=== PATIENT | female | born 1945 | race Hispanic/Latino ===

== ENCOUNTER 2017-02-03 09:00 | Day surgery (SDC) | payer OTHER ==
[~2017-02-03] VITALS: Ht 149.9 cm; Wt 71.2 kg
[~2017-02-03 09:00] MED LIST: ASPI-555 PO; CETI10TA57 PO; HYDR25TA PO; METO-409 PO; SODIUM CHLORIDE 0.9% 1000ML 1,000 ML IV ONE
[2017-02-03 11:18] VITALS: BP 142/69
[2017-02-03] MEDS ORDERED: MEPERIDINE-PF 50 MG/ML SYG ONE (12:09)
[2017-02-03] MEDS ORDERED: MIDAZOLAM HCL 1 MG/ML 2ML VIAL ONE (12:09)
== END 2017-02-03 13:13 | disposition home or self-care (01) ==
LOC: DAH 09:00 → ENDO 09:00
PROVIDERS: ATTEND Internal Medicine Gastroenterology
DX: Z09 Encounter for follow-up examination after completed treatment for conditions other than malignant neoplasm (principal); K63.5 Polyp of colon; K57.30 Diverticulosis of large intestine without perforation or abscess without bleeding; Z87.19 Personal history of other diseases of the digestive system; K21.9 Gastro-esophageal reflux disease without esophagitis; I10 Essential (primary) hypertension; Z88.8 Allergy status to other drugs, medicaments and biological substances; Z79.82 Long term (current) use of aspirin
CPT/HCPCS: 45380; 88305; 99156; A4606; J2175; J2250; J7030

== ENCOUNTER 2018-04-23 23:31 | Observation (INO) | payer OTHER ==
[~2018-04-23] VITALS: Ht 154.9 cm; Wt 72.9 kg
[~2018-04-23 23:31] MED LIST changes: -SODIUM CHLORIDE 0.9% 1000ML 1,000 ML IV ONE
[2018-04-24] MEDS ORDERED: PROMETHAZINE HCL 25 MG/ML 1ML AMPULE IM ONE (00:13)
[2018-04-24 00:14] LABS: RAPID GROUP A STREP NEGATIVE (NEGATIVE)
[2018-04-24 00:45] LABS: BASOPHILS % (AUTO) 0.5 % (0.0-5.0); EOSINOPHILS % (AUTO) 0.3 % (0.0-8.0); HEMATOCRIT 38.6 % (36-48); LYMPHOCYTES % (AUTO) 13.1 % (21.0-51.0); MEAN CORPUSCULAR HEMOGLOBIN 29.8 pg (27.0-33.0); MEAN CORPUSCULAR HGB CONC 34.7 g/dL (32.0-36.0); MEAN CORPUSCULAR VOLUME 85.8 fL (79-99); MONOCYTES % (AUTO) 5.2 % (3.0-13.0); NEUTROPHILS % (AUTO) 80.9 % (40.0-77.0); NUCLEATED RED BLOOD CELLS 0.1 % (0.0-0.19); PLATELET COUNT (AUTO) 268 K/uL (130-400); RED CELL DISTRIBUTION WIDTH 13.4 % (11.0-15.5); WHITE BLOOD COUNT (AUTO) 10.6 K/uL (4.8-10.8)
[2018-04-24 00:57] LABS: APPEARANCE,URINE CLEAR (CLEAR); BILIRUBIN,URINE NEGATIVE (NEGATIVE); COLOR,URINE YELLOW (YELLOW); GLUCOSE, URINE (UA) NEGATIVE (NEGATIVE); KETONES,URINE 15 mg/dL (NEGATIVE); LEUKOCYTE ESTERASE ,URINE NEGATIVE (NEGATIVE); NITRATE,URINE NEGATIVE (NEGATIVE); OCCULT BLOOD,URINE NEGATIVE (NEGATIVE); PROTEIN,URINE NEGATIVE (NEGATIVE); UROBILINOGEN,URINE 0.2 mg/dL (0.2-1.0)
[2018-04-24 00:59] LABS: INR 1.02 (0.85-1.15); PROTHROMBIN TIME 10.7 SEC (9.6-11.6)
[2018-04-24 01:00] LABS: ALBUMIN 3.6 g/dL (3.5-5.0); BILIRUBIN,TOTAL 0.4 mg/dL (0.2-1.0); CREATININE 1.1 mg/dL (0.5-1.5); TOTAL PROTEIN, SERUM 7.9 g/dL (6.0-8.3)
[2018-04-24 01:06] LABS: POTASSIUM 2.8 mmol/L (3.5-5.1)
[2018-04-24] MEDS ORDERED: SODIUM CHLORIDE 0.9% 1000ML 1,000 ML IV ONE (01:06)
[2018-04-24] MEDS ORDERED: FAMOTIDINE/PF 20 MG/2 ML VIAL IV ONE (01:07)
[2018-04-24 01:09] LABS: BACTERIA,URINE Rare /HPF (None Seen); RBC,URINE 0-1 /HPF (0-1); YEAST,URINE BUDDING Few /HPF (None Seen)
[2018-04-24] MEDS ORDERED: LIDOCAINE HCL-MPF 1% 2ML VIAL ONE (01:52)
[2018-04-24] MEDS ORDERED: POTASSIUM CHLORIDE 20MEQ/100ML 100 ML IV ONE (01:52)
[2018-04-24] MEDS ORDERED: POTASSIUM CHLORIDE 10% ELIXIR 20 MEQ/15 ML UDCUP ONE ×2 (01:52→01:57)
[2018-04-24] MEDS ORDERED: ONDANSETRON HCL 4 MG/2 ML VIAL IV PRN (02:15)
[2018-04-24] MEDS ORDERED: ACETAMINOPHEN 325 MG TAB PO PRN (02:15)
[2018-04-24] MEDS ORDERED: CHOL100040 PO (04:29)
[2018-04-24] MEDS ORDERED: BACL10TA PO (04:29)
[2018-04-24 04:30] VITALS: BP 153/75
--- NOTE | 2018-04-24 05:03 | NUR ---
ADMISSION. PT ADMITTED INTO ROOM 404 FROM ER. PT TRANSFERRED VIA STRETCHER. PT AWAKE, ALERT AND RESPONSIVE. NO C/O PAIN OR DISCOMFORT AT THIS TIME. PT ORIENTED TO ROOM, CALL RUBI WITHIN REACH, BED IN LOWEST POSITION. Addendum: 04/24/18 at 0505 by SCARLETT ESQUIVEL RN Amended: Links added.
[2018-04-24] MEDS: LACTATED RINGERS 1000ML 1,000 ML IV SCH ×3 (06:16→22:23)
[2018-04-24] MEDS ORDERED: POTASSIUM CHLORIDE 20MEQ/100ML 100 ML IV PRN (06:30)
[2018-04-24] MEDS ORDERED: LIDOCAINE HCL-MPF 1% 2ML VIAL IVP PRN (06:30)
[2018-04-24] MEDS ORDERED: POTASSIUM CHLORIDE 10% ELIXIR 20 MEQ/15 ML UDCUP PO PRN (06:30)
[2018-04-24] MEDS: POTASSIUM CHLORIDE 20 MEQ ERTAB PO PRN ×3 (07:09→12:52)
[2018-04-24 08:37] VITALS: BP 137/71
[2018-04-24] MEDS ORDERED: ***HM***Metoprolol Succinate 100 MG PO SCH (09:00)
[2018-04-24] MEDS: HYDROCHLOROTHIAZIDE 25 MG TABLET PO SCH (10:10)
[2018-04-24] MEDS: CETIRIZINE HCL 5 MG TABLET PO SCH (10:10)
[2018-04-24] MEDS: FAMOTIDINE/PF 20 MG/2 ML VIAL IV SCH ×2 (10:10→20:30)
[2018-04-24 11:36] VITALS: BP 137/73
[2018-04-24] MEDS: ACETAMINOPHEN 325 MG TAB PO PRN (11:40)
--- NOTE | 2018-04-24 15:28 | NUR ---
RD Notification - Trigger Patient admitted with dehydration, Hypokalemia, medication side effect. Patient on full liquid diet. Patient reports feelings of fullness and nausea at 25-49% intake. Rec to continue to monitor on Full Liquid diet. Patient LBM 04/23/18. Patient monitored labs K 3.3, Cl 98, GFR 58, Glu 155, Lipase 319, Alb 3.6. RD to continue to monitor. Please notify RD as nutritional concerns arise. Thank you. Addendum: 04/24/18 at [address] RD Amended: Links added.
[2018-04-24 16:41] VITALS: BP 124/58
[2018-04-24 19:36] VITALS: BP 144/68
[2018-04-24 23:50] VITALS: BP 139/60
[2018-04-25] MEDS: ACETAMINOPHEN 325 MG TAB PO PRN (03:05)
[2018-04-25 03:41] VITALS: BP 156/70
[2018-04-25] MEDS: POTASSIUM CHLORIDE 20 MEQ ERTAB PO PRN ×2 (05:27→07:30)
[2018-04-25 07:52] VITALS: BP 137/72
[2018-04-25] MEDS: FAMOTIDINE/PF 20 MG/2 ML VIAL IV SCH (08:16)
[2018-04-25] MEDS: CETIRIZINE HCL 5 MG TABLET PO SCH (08:16)
[2018-04-25] MEDS: HYDROCHLOROTHIAZIDE 25 MG TABLET PO SCH (08:17)
[2018-04-25 12:05] VITALS: BP 136/68
--- NOTE | 2018-04-25 16:16 | NUR ---
DISCHARGE PATIENT GIVEN DISCHARGE INSTRUCTIONS AND EDUCATION, INCLUDING SIDE EFFECTS ON NEW PRESCRIBED MEDICATIONS AND FOLLOW UP APPOINTMENT. PATIENT VERBALIZED UNDERSTANDING OF ALL EDUCATION GIVEN VIA TEACH BACK. PRESCRIPTION CALLED IN TO [facility]. IV DISCONTINUED, CATHETER INTACT. NO SIGNS OF DISTRESS NOTED UPON DISCHARGE. PATIENT LEFT VIA WHEELCHAIR TO PRIVATE CAR WITH SPOUSE AT SIDE. ALL BELONGINGS TAKEN WITH. Addendum: 04/25/18 at 1630 by CONCEPCION BUCK RN RN Amended: Links added.
== END 2018-04-25 17:26 | disposition home or self-care (01) ==
LOC: EDH 23:31 → EDHIP 04-24 01:40 → 4AH 04-24 03:57
PROVIDERS: ADMIT Internal Medicine; ATTEND Internal Medicine
DX: E86.0 Dehydration (principal); E87.6 Hypokalemia; Z82.49 Family history of ischemic heart disease and other diseases of the circulatory system; Z79.899 Other long term (current) drug therapy; Z79.01 Long term (current) use of anticoagulants
CPT/HCPCS: 36415 ×2; 71045; 80053; 81001; 82550; 83605 ×2; 83690; 84132 ×2; 84484; 85025; 85610; 85730; 87804 ×2; 87880; 93005; 96361 ×2; 96374; 96376 ×2; 99284; G0378 ×40; J2550; J3480; J3490 ×5; J7030; J7120 ×3

== ENCOUNTER → 2018-09-26 | Outpatient (CLI) | payer OTHER ==
[~2018-09-26] MED LIST changes: +BACL10TA PO; +CHOL100040 PO
== END | disposition home or self-care (01) ==
LOC: RAH 09:36
PROVIDERS: ATTEND Internal Medicine
DX: R10.30 Lower abdominal pain, unspecified (principal); N39.41 Urge incontinence
CPT/HCPCS: 76856

== ENCOUNTER → 2019-01-24 | Outpatient (CLI) | payer OTHER ==
[~2019-01-24] MED LIST changes: +IOHEXOL 350 MG/ML 100ML INFUS..BTL IV ONE
== END | disposition home or self-care (01) ==
LOC: RAH 08:28
PROVIDERS: ATTEND Internal Medicine Gastroenterology
DX: K57.30 Diverticulosis of large intestine without perforation or abscess without bleeding (principal); M25.559 Pain in unspecified hip; N85.8 Other specified noninflammatory disorders of uterus; R63.5 Abnormal weight gain; Z90.49 Acquired absence of other specified parts of digestive tract
CPT/HCPCS: 74178; Q9967

== ENCOUNTER → 2019-03-20 | Outpatient (CLI) | payer OTHER ==
[~2019-03-20] MED LIST changes: -IOHEXOL 350 MG/ML 100ML INFUS..BTL IV ONE
== END | disposition home or self-care (01) ==
LOC: OIH 10:55
PROVIDERS: ATTEND Internal Medicine Cardiovascular Disease
DX: Z13.6 Encounter for screening for cardiovascular disorders (principal)
CPT/HCPCS: 75571